=== PATIENT | female | born 1950 | race Caucasian/White ===

== ENCOUNTER 2018-08-31 06:14 | Inpatient (IN) | payer MEDICARE ==
[~2018-08-31] VITALS: Ht 167.6 cm; Wt 76.6 kg
[2018-08-31] VITALS (10 sets, daily range): BP systolic 95–144; BP diastolic 41–61; PULSE 63–72; TEMP 97.7–98.8
[~2018-08-31 06:14] MED LIST: ASPIRIN 81M81 MG/TA2 PO; CALCIUM 600600 M2 PO; CALCIUM500 MG PO; CLARITIN 1010 MG/TAB PO; FLAGYL500 MG PO; GLUCOPHAGE500 MG/TAB PO; GLUCOSAMINE & C1 TA3 PO; GLUCOSAMINE500 M2 PO; LEVAQUIN 750MG750 M1 PO; LIPITOR 40MG TA40 MG PO; LUTEIN 6 MG PO; MASON NATURAL500 MG PO; MULTIPLE VITAMI1 CAP; NORCO 325 MG-7.1 TAB PO; OCUVITE1 TA1 PO; PRESERVISION1 SGL PO; PRINIVIL2.5 MG; PRINIVIL20 MG PO; PROBIOTIC FORMU1 CAP PO; SALMON OIL1000 MG PO; VITAMIN E 400 U4001 PO; [UNRECOGNIZED DRUG - OTHER] PO; [UNRECOGNIZED DRUG - REMARK]
[2018-08-31 07:18] LABS: BASO # 0.1 (0.0-0.2); BASO % 0.5 % (0.0-2.0); EOS # 0.1 (0.0-0.7); EOS % 0.5 % (0-4.0); GRAN % 80.5 % (42.2-75.2); HEMATOCRIT 39.7 % (37.0-47.0); LYMPH # 1.2 (1.2-3.4); LYMPH % 12.3 % (20.0-51.0); MEAN CELL VOLUME 89 fl (80.0-100.0); MEAN CORPUSCULAR HEMOGLOBIN 29 pg (27.0-31.0); MEAN CORPUSCULAR HGB CONC 33 g/dl (33.0-37.0); MONO # 0.6 (0.1-0.6); MONO % 5.9 % (1.7-9.3); PLATELET COUNT 201 K/mm3 (130-400); RED BLOOD COUNT 4.46 M/mm3 (4.10-5.30); REDCELL DISTRIBUTION WIDTH-CV 13.6 % (11.5-14.5)
[2018-08-31 07:29] LABS: ALBUMIN 4.1 gm/dL (3.5-5.0); BILIRUBIN,TOTAL 0.7 mg/dL (0.0-1.0); CALCIUM 9.8 mg/dL (8.4-10.2); CREATININE, serum 0.59 (0.52-1.25); POTASSIUM 3.9 mmol/L (3.4-5.0); TOTAL PROTEIN 7.4 gm/dL (6.4-8.2)
[2018-08-31] MEDS ORDERED: TRULICITY0.75 MG/0. SQ (07:47)
--- NOTE | 2018-08-31 09:30 | NUR ---
PATIENT ARRIVED TO ROOM 349 FROM ED. PRESENT AT THE BEDSIDE. CALL LIGHT WITHIN REACH.
[2018-08-31] MEDS ORDERED: CALCIUM CARBON650 M2 (10:32)
--- NOTE | 2018-08-31 10:34 | NUR ---
PATIENT ADMISSION ASSESSMENT, MED REC AND ALLERGY LIST COMPLETED. SEE ADMISSION ASSESSMENT B. PATIENT DENIES ANY NEEDS AT THIS TIME.
[2018-08-31] MEDS ORDERED: EPA FISH OIL1 SGL PO (10:35)
[2018-08-31] MEDS ORDERED: EYE DROP ADVANC15 ML OP (10:37)
--- NOTE | 2018-08-31 11:21 | NUR ---
DR. JONES CALLED AND NOTIFIED OF PATIENT ARRIVAL TO ROOM 349.
[2018-08-31 13:10] LABS: COLLECTION METHOD CLEAN CATCH
[2018-08-31 13:25] LABS: MUCOUS Present /lpf; PH 5 (5-8); SQUAMOUS EPITHELIAL 0-2 /hpf; URINE APPEARANCE Clear; URINE BACTERIA None Seen /hpf; URINE BILIRUBIN Negative (NEGATIVE); URINE BLOOD Negative (NEGATIVE); URINE COLOR Yellow; URINE GLUCOSE 1+ (NEGATIVE); URINE KETONE Trace (NEGATIVE); URINE LEUKOCYTE ESTERASE Negative (NEGATIVE); URINE NITRATE Negative (NEGATIVE); URINE PROTEIN(semi-quant) Negative (NEGATIVE); URINE UROBILINOGEN Negative (NEGATIVE)
--- NOTE | 2018-08-31 13:28 | NUR ---
PATIENT PRE-OP MEDICATIONS GIVEN AND NORMAL SALINE TO GRAVITY FLOW TUBING AND INFUSING TO RIGHT AC IV. PATIENT CONSENT FORM SIGNED AND ON PATIENT CHART.
--- NOTE | 2018-08-31 15:18 | NUR ---
PATIENT STATED THAT SHE FEELS NAUSEATED AND THAT HER PAIN IS A 7/10 ON A 0-10 SCALE, AND SHE DESCRIBES IT A CONSTANT ACHY PAIN. PATIENT GIVEN PRN DOSE OF IV ZOFRAN AND IV MORPHINE. WILL CONTINUE TO MONITOR.
--- NOTE | 2018-08-31 15:33 | NUR ---
KRISTIAN met with the patient and patient's (Frantz), son (Rashad), and two daughters (Sarah & Yee) to discuss discharge plan. The patient lives [place] with her , Frantz. She reports independence with ADLs and has a cane, walker, and wheelchair. The patient's PCP is Dr. Ar Malik and she receives her medications at [facility]. She reports no difficulties obtaining her meds. The patient does not have advanced directives, but she was interested in obtaining a form for [employer]PO[employer]. KRISTIAN provided. The patient plans to return home with her upon discharge. No additional needs at this time.
--- NOTE | 2018-08-31 15:43 | NUR ---
PATIENT TAKEN TO PERIOP VIA BED. WILL WAIT FOR PATIENT ARRIVAL BACK TO ROOM 349 POST-OP.
--- NOTE | 2018-08-31 19:00 | NUR ---
REPORT GIVEN TO KRISTINE ESCUDERO.
--- NOTE | 2018-08-31 19:00 | NUR ---
Pt. arrived to the floor from PACU. Pt. is A&OX3, assessment complete. IV to lt. hand patent. IV fluids infusing per orders. 3 abd. lap sites noted, CDI. abd. incision CDI with gauze, CDI. Pt. denies pain or other needs, call light within reach.
[2018-09-01 00:14] VITALS: BP 104/44; PULSE 71; TEMP 98.1
[2018-09-01 04:59] VITALS: BP 119/55; PULSE 78; TEMP 98.8
[2018-09-01 09:00] VITALS: BP 105/53; PULSE 77; TEMP 98.4
--- NOTE | 2018-09-01 10:00 | NUR ---
Dr. Kirk saw patient. Medicated with [place] for c/o incisional pain. Taking po fluids slowly.
[2018-09-01 11:14] LABS: BASO % 0.7 % (0.0-2.0); EOS # 0.1 (0.0-0.7); GRAN # 4.1 (1.4-6.5); GRAN % 69.3 % (42.2-75.2); HEMOGLOBIN 11.3 g/dl (12.5-16.0); LYMPH # 1.2 (1.2-3.4); LYMPH % 19.9 % (20.0-51.0); MEAN CELL VOLUME 91 fl (80.0-100.0); MEAN CORPUSCULAR HEMOGLOBIN 29 pg (27.0-31.0); MEAN CORPUSCULAR HGB CONC 32 g/dl (33.0-37.0); MEAN PLATELET VOLUME 11.7 fl (7.4-10.4); MONO # 0.5 (0.1-0.6); MONO % 7.8 % (1.7-9.3); PLATELET COUNT 180 K/mm3 (130-400); RED BLOOD COUNT 3.91 M/mm3 (4.10-5.30); REDCELL DISTRIBUTION WIDTH-CV 14.2 % (11.5-14.5)
[2018-09-01 11:27] LABS: HEMATOCRIT 35.5 % (37.0-47.0)
[2018-09-01 12:07] VITALS: BP 98/50; PULSE 64; TEMP 98
--- NOTE | 2018-09-01 15:55 | NUR ---
Ambulatory in room by self. Voiding francois urine without difficulty. Taking food and fluids well. Incisional pain improved with prn A[place]. Prescription and home instructions given. Dismissed to home per w/c with family.
== END 2018-09-01 15:55 | disposition home or self-care (01) | DRG 419 ==
LOC: COL.ER 06:14 → SURG 08:36
PROVIDERS: Emergency Medicine; ADMIT Surgery
PROC: 0FT44ZZ Resection of Gallbladder, Percutaneous Endoscopic Approach (ICD-10-PCS; principal; 2018-08-31 18:00)
DX: K80.00 Calculus of gallbladder with acute cholecystitis without obstruction (principal); I10 Essential (primary) hypertension; K82.A1 Gangrene of gallbladder in cholecystitis; E11.9 Type 2 diabetes mellitus without complications; Z79.84 Long term (current) use of oral hypoglycemic drugs; Z79.82 Long term (current) use of aspirin; Z88.0 Allergy status to penicillin
CPT/HCPCS: J1885; J1956; J2270; J2405; J2704; J2710; J3010; J7030; J7120; Q9967

== ENCOUNTER 2022-07-22 11:24 | Emergency (ER) | payer MEDICARE ==
[~2022-07-22] VITALS: Ht 167.6 cm; Wt 76.4 kg
[~2022-07-22 11:24] MED LIST changes: +CALCIUM CARBON650 M2; +EPA FISH OIL1 SGL PO; +EYE DROP ADVANC15 ML OP; +TRULICITY0.75 MG/0. SQ
[2022-07-22 11:42] VITALS: TEMP 98
[2022-07-22 13:25] LABS: BASO # 0.1 K/mm3 (0.0-0.2); BASO % 0.7 % (0.0-2.0); EOS # 0.2 K/mm3 (0.0-0.7); EOS % 3.3 % (0.0-4.0); GRAN # 4.6 K/mm3 (1.4-6.5); GRAN % 63.4 % (42.2-75.2); HEMATOCRIT 40.1 % (37.0-47.0); HEMOGLOBIN 13.2 g/dl (12.5-16.0); LYMPH # 1.6 K/mm3 (1.2-3.4); LYMPH % 21.9 % (20.0-51.0); MEAN CELL VOLUME 89 fl (80.0-100.0); MEAN CORPUSCULAR HEMOGLOBIN 29 pg (27-31); MEAN CORPUSCULAR HGB CONC 33 g/dl (33.0-37.0); MEAN PLATELET VOLUME 11.1 fl (7.4-10.4); MONO # 0.8 K/mm3 (0.1-0.6); MONO % 10.6 % (1.7-9.3); PLATELET COUNT 188 K/mm3 (130-400); RED BLOOD COUNT 4.51 M/mm3 (4.10-5.30); REDCELL DISTRIBUTION WIDTH-CV 14.4 % (11.5-14.5)
[2022-07-22 13:45] LABS: ALANINE AMINOTRANSFERASE 16 U/L (0-55); ALBUMIN 3.5 gm/dL (3.4-4.8); ALKALINE PHOSPHATASE 65 U/L (40-150); ANION GAP 12 mmol/L (7-16); AST,SGOT 9 U/L (5-34); BILIRUBIN,TOTAL 0.4 mg/dL (0.2-1.2); BLOOD UREA NITROGEN 16 mg/dL (10-20); CALCIUM 9.6 mg/dL (8.4-10.2); CARBON DIOXIDE 23 mmol/L (23-31); CHLORIDE 104 mmol/L (98-107); GLUCOSE 116 mg/dL (70-99); POTASSIUM 4.1 mmol/L (3.5-4.5); SODIUM 139 mmol/L (136-145); TOTAL PROTEIN 6.6 gm/dL (6.2-8.1)
[2022-07-22 13:54] LABS: TROPONIN-I < 0.010 ng/mL (0.00-0.033)
[2022-07-22 16:00] VITALS: BP 137/63; PULSE 74
[2022-07-22] MEDS ORDERED: FLEXERIL 1010 MG/TAB PO (16:02)
== END 2022-07-22 16:18 | disposition home or self-care (01) ==
LOC: COL.ER 11:24
PROVIDERS: Emergency Medicine
DX: M47.812 Spondylosis without myelopathy or radiculopathy, cervical region (principal); D16.4 Benign neoplasm of bones of skull and face
CPT/HCPCS: J1885; Q9967